=== PATIENT | male | born 1995 | race Caucasian/White ===

== ENCOUNTER → 2017-03-10 | Outpatient (CLI) | payer BC ==
--- NOTE | 2017-03-10 17:59 | US ---
EXAMINATION TYPE: US thyroid st tissue head/neck DATE OF EXAM: 03/10/2017 COMPARISON: US 2017 CLINICAL HISTORY: I88.9 Nonspecific lymphadenitis. Follow up, lymphadenitis. Left neck area of concern: multiple well defined hypoechoic vascular structures of varying sizes with largest measuring 3.1 x 0.9 x 1.7cm Right neck area of concern: multiple well defined hypoechoic vascular structures of varying sizes wit h largest measuring 3.2 x 1.1 x 2.0cm IMPRESSION: There are enlarged cervical lymph nodes that measure up to 3.2 cm in length bilaterally and these appear slightly smaller than the old CT scan of 02/13/2017. No evidence of an abscess.
== END | disposition home or self-care (01) ==
LOC: EDSEX 03-09 15:00 → RADUSWWP 17:01
PROVIDERS: ATTEND Family Medicine
DX: R59.0 Localized enlarged lymph nodes (principal)
CPT/HCPCS: 76536

== ENCOUNTER → 2023-08-03 | Outpatient (CLI) | payer OTHER, BC ==
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
== END | disposition home or self-care (01) ==
LOC: RADMRIMAIN 18:04
PROVIDERS: ATTEND Family Medicine
DX: M51.24 Other intervertebral disc displacement, thoracic region (principal); M51.34 Other intervertebral disc degeneration, thoracic region
CPT/HCPCS: 72146